=== PATIENT | male | born 2005 | race Caucasian/White ===

== ENCOUNTER 2024-03-24 07:28 | Emergency (ER) | payer MEDICAID ==
[~2024-03-24] VITALS: Ht 172.7 cm; Wt 73.0 kg
[2024-03-24 07:30] VITALS: BP 148/88; PULSE 117; TEMP 98.4; O2SAT 100
[2024-03-24] MEDS ORDERED: ACET-2708 MT (08:28)
[2024-03-24 08:51] VITALS: RESP 17
== END 2024-03-24 08:30 | disposition home or self-care (01) ==
LOC: ER 07:28
DX: S01.01XA Laceration without foreign body of scalp, initial encounter (principal); V43.52XA Car driver injured in collision with other type car in traffic accident, initial encounter; Y93.89 Activity, other specified; Y92.89 Other specified places as the place of occurrence of the external cause; Y99.8 Other external cause status
CPT/HCPCS: 12001; 99283; Z7610 ×2